=== PATIENT | female | born 1975 | race Caucasian/White ===

== ENCOUNTER 2023-08-11 08:37 | Outpatient (REF) | payer OTHER, SELFPAY ==
[2023-08-11 09:42] LABS: Neutrophils Absolute Auto 6.4 x10*3/uL (2.0-8.3); White Blood Count 9.2 X10*3/uL (4.8-10.8)
[2023-08-11 09:46] LABS: Estimated Average Glucose 111 mg/dL; Hemoglobin A1c % 5.5 % (<6.0)
[2023-08-11 10:27] LABS: Alanine Aminotransferase 13 U/L (0-31); Albumin Level 3.6 g/dL (3.5-5.0); Alkaline Phosphatase 138 U/L (39-117); Anion Gap 11 (12-20); Aspartate Amino Transferase 16 U/L (5-31); Bilirubin Total 0.2 mg/dL (0.0-1.0); Blood Urea Nitrogen 11 mg/dL (9-16); Calcium 8.9 mg/dL (8.4-10.2); Carbon Dioxide 23 mmol/L (22-29); Chloride 109 mmol/L (96-108); Estimated Glomerular Filt Rate > 60; Glucose Random 99 mg/dL (60-115); Potassium 3.9 mmol/L (3.3-5.1); Sodium 139 mmol/L (135-145); Total Protein 7.2 g/dL (6.5-8.0)
[2023-08-12 18:33] LABS: Prolactin 17.9 ng/mL
== END 2023-08-11 08:38 | disposition home or self-care (01) ==
LOC: HO.LAB 08:37
PROVIDERS: Visit Provider Registered Nurse Community Health
DX: F33.0 Major depressive disorder, recurrent, mild (principal); F60.3 Borderline personality disorder
CPT/HCPCS: 36415; 80053; 83036; 84146; 85048